=== PATIENT | male | born 1990 | race Hispanic/Latino ===

== ENCOUNTER → 2024-09-18 | Outpatient (CLI) | payer BC, OTHER ==
--- NOTE | 2024-09-18 12:45 | HMCIMG ---
MRI LEFT HINDFOOT/ANKLE WITHOUT CONTRAST INDICATION: Sprain of calcaneofibular ligament of left ankle, initial encounter; S93.412A COMPARISON: None TECHNIQUE: Long and short axis fat and water weighted sequences were obtained through the left ankle. FINDINGS: High ankle ligaments appear unremarkable. Anterior and posterior talofibular ligaments are intact. Deltoid ligament complex appears normal. Calcaneofibular ligament is intact. Anterior and medial tendon group, including the posterior tibial tendon, are intact. Lateral peroneal complex is intact, and not subluxed. Posterior fibular groove is well formed. Achilles tendon and plantar fascia are intact. Kager's fat pad is well maintained. Small joint effusion. No abnormal soft tissue mass or ganglion noted. Talar dome is intact without osteochondral lesion. Ankle mortise and tibial plafond are well maintained. Sinus canal is patent. No evidence for coalition. No significant degenerative joint disease identified. No evidence for muscle atrophy or myoedema. Incomplete transverse linear low T1 and T2 signal surrounded by extensive reactive marrow edema within the central distal left tibial metaphysis. Mild to moderate overlying soft tissue swelling. IMPRESSION: Incomplete stress fracture through the distal left tibial metaphysis and small joint effusion, without any other internal derangement.
== END | disposition home or self-care (01) ==
LOC: RAH 10:35
PROVIDERS: ATTEND Nurse Practitioner Family
DX: M84.372A Stress fracture, left ankle, initial encounter for fracture (principal); S93.412A Sprain of calcaneofibular ligament of left ankle, initial encounter; M25.472 Effusion, left ankle; E65 Localized adiposity; M79.89 Other specified soft tissue disorders; X58.XXXA Exposure to other specified factors, initial encounter; Y93.89 Activity, other specified; Y92.89 Other specified places as the place of occurrence of the external cause; Y99.8 Other external cause status
CPT/HCPCS: 73721